=== PATIENT | female | born 1940 | race Caucasian/White ===

== ENCOUNTER 2018-07-26 14:30 | Outpatient (CLI) | payer OTHER | END 2018-07-26 14:33 | disposition home or self-care (01) | LOC: MAMO-SONO 14:30 | DX: Z12.31 Encounter for screening mammogram for malignant neoplasm of breast (principal); Z87.898 Personal history of other specified conditions; N60.11 Diffuse cystic mastopathy of right breast; N60.12 Diffuse cystic mastopathy of left breast ==

== ENCOUNTER 2020-07-23 10:31 | Outpatient (CLI) | payer OTHER | END 2020-07-23 10:41 | disposition home or self-care (01) | LOC: RAD 10:31 → TOM 11:15 | PROVIDERS: ATTEND Internal Medicine | DX: I74.19 Embolism and thrombosis of other parts of aorta (principal) | CPT/HCPCS: 74174; Q9965 ==

== ENCOUNTER 2020-11-14 08:00 | Outpatient (CLI) | payer OTHER | END 2020-11-14 08:30 | disposition home or self-care (01) | LOC: PPH VACUNA 08:00 | DX: Z23 Encounter for immunization (principal) ==

== ENCOUNTER 2020-12-11 08:00 | Outpatient (CLI) | payer OTHER | END 2020-12-11 08:30 | disposition home or self-care (01) | LOC: PPH VACUNA 08:00 | DX: Z23 Encounter for immunization (principal) ==

== ENCOUNTER 2022-02-02 13:22 | Outpatient (CLI) | payer OTHER ==
[2022-02-02] MEDS ORDERED: LEVOTHYROXINE25 MCG PO (15:17)
[2022-02-02] MEDS ORDERED: NORVASC5 MG PO (15:18)
== END 2022-02-02 13:24 | disposition home or self-care (01) ==
LOC: TOM 13:22
PROVIDERS: ATTEND Internal Medicine Pulmonary Disease
DX: R06.02 Shortness of breath (principal); U09.9 Post COVID-19 condition, unspecified

== ENCOUNTER 2022-09-04 14:01 | Outpatient (CLI) | payer OTHER ==
[~2022-09-04 14:01] MED LIST: LEVOTHYROXINE25 MCG PO; NORVASC5 MG PO
== END 2022-09-04 14:09 | disposition home or self-care (01) ==
LOC: TOM 14:01
PROVIDERS: ATTEND Internal Medicine Pulmonary Disease
DX: J43.2 Centrilobular emphysema (principal); J30.1 Allergic rhinitis due to pollen; Z87.891 Personal history of nicotine dependence; Z86.16 Personal history of COVID-19

== ENCOUNTER 2023-05-19 14:07 | Outpatient (CLI) | payer OTHER | END 2023-05-19 14:17 | disposition home or self-care (01) | LOC: TOM 14:07 | PROVIDERS: ATTEND Internal Medicine Pulmonary Disease | DX: J84.116 Cryptogenic organizing pneumonia (principal); Z87.891 Personal history of nicotine dependence; Z86.16 Personal history of COVID-19; R04.2 Hemoptysis ==

== ENCOUNTER 2023-05-24 10:19 | Inpatient (IN) | payer OTHER ==
[~2023-05-24] VITALS: Ht 157.5 cm; Wt 44.9 kg
[2023-05-24 12:52] LABS: HEMATOCRIT 39.2 % (36.0-45.00); HEMOGLOBIN 13.4 g/dL (12.0-15.00); MEAN CELL VOLUME 92.9 fL (80.00-100.00); MEAN CORPUSCULAR HEMOGLOBIN 31.7 pg (27.00-32.0); MEAN CORPUSCULAR HGB CONC 34.2 g/dl (32.0-36.0); PLATELET COUNT 484 K/uL (150-450); RED BLOOD COUNT 4.22 M/uL (4.00-6.00)
[2023-05-24 13:18] LABS: CALCIUM 9.8 mg/dL (8.5-10.1); CREATININE SERUM 0.59 mg/dL (0.55-1.02); GFR 97.82; POTASSIUM 3.87 mEq/L (3.5-5.1)
[2023-05-24 13:27] LABS: C-REACTIVE PROTEIN 0.32 MG/DL (0.00-0.29)
[2023-05-24 13:53] LABS: ABG PH 7.419 (7.35-7.45); ABG pCO2 39.9 mmHg (35-45); BASE EXCESS 0.8 mmol/l; BICARBONATE 25.3 mmol/l (23-25); SaO2 98.1 %; Tco2 26.5 mmol/l; allen test SATISFACTORY; o2 32 %; puncture site RADIAL RIGHT
[2023-05-24 21:29] LABS: D DIMER 0.98 MG/L; INR 1.03; PARTIAL THROMBOPLASTIN TIME 34.6 SECONDS (22.0-34.0); PROTHROMBIN TIME 10.8 SECONDS (9.0-11.5)
[2023-05-24 23:02] LABS: PH,URINE 6.5 (5.0-8.0); URINE APPEARANCE Clear; URINE BILIRRUBIN Negative (NEGATIVE); URINE BLOOD Negative; URINE COLOR Yellow; URINE GLUCOSE Negative (NEGATIVE); URINE LEUKOCYTE Small; URINE NITRATE Negative; URINE PROTEIN Negative (NEGATIVE); URINE UROBILINOGEN 0.2 E.U./dl
[2023-05-24 23:05] LABS: URINE BACTERIA 2774.4 uL (0.0-1933); URINE EPITHELIAL CELLS 42.6 uL (0.0-38.8); URINE WBC 108.9 uL (0.0-23.2)
[2023-05-26 06:15] LABS: HEMATOCRIT 34.1 % (36.0-45.00); HEMOGLOBIN 11.7 g/dL (12.0-15.00); MEAN CELL VOLUME 92.1 fL (80.00-100.00); MEAN CORPUSCULAR HEMOGLOBIN 31.5 pg (27.00-32.0); MEAN CORPUSCULAR HGB CONC 34.2 g/dl (32.0-36.0); PLATELET COUNT 388 K/uL (150-450); RED CELL DISTRIBUTION WIDTH 13.8 % (11.5-14.5)
[2023-05-26 07:01] LABS: ALBUMIN 2.8 gm/dL (3.4-5.0); ALKALINE PHOSPHATASE 62 U/L (50-136); ALT/SGPT 17 U/L (12-78); ANION GAP 11 (10.0-20.0); AST/SGOT 14 U/L (15-37); BILIRUBIN TOTAL 0.36 mg/dL (0.3-1.2); BLOOD UREA NITROGEN 10 mg/dL (7-18); BUN CREA RATIO 16 (7.0-25.0); C-REACTIVE PROTEIN < 0.29 MG/DL (0.00-0.29); CALCIUM 8.7 mg/dL (8.5-10.1); CARBON DIOXIDE 26 mEq/L (21-32); CHLORIDE 103 mmol/L (98-107); CREATININE SERUM 0.63 mg/dL (0.55-1.02); GFR 90.69; GLOBULINA 3.2 G/DL (2.4-3.5); GLUCOSE FASTING 171 mg/dL (65-100); LDH 108 U/L (84-246); OSMOLALITY SERUM 275 MOSM/KG (275-295); PHOSPHOROUS 3.6 mg/dL (2.5-4.9); POTASSIUM 4.19 mEq/L (3.5-5.1); SODIUM 136 mmol/L (136-145)
[2023-05-29 00:05] LABS: quan ag 0 IU/mL (.); quan mito 9.22 IU/mL (.); quant nil 0 IU/mL (.)
[2023-05-29 08:23] LABS: CALCIUM 9.4 mg/dL (8.5-10.1); CREATININE SERUM 0.61 mg/dL (0.55-1.02); GFR 94.13; MAGNESIUM 1.9 mg/dL (1.8-2.4); POTASSIUM 3.43 mEq/L (3.5-5.1)
[2023-05-29 09:04] LABS: HEMATOCRIT 36.6 % (36.0-45.00); HEMOGLOBIN 12.3 g/dL (12.0-15.00); MEAN CELL VOLUME 91.1 fL (80.00-100.00); MEAN CORPUSCULAR HEMOGLOBIN 30.6 pg (27.00-32.0); MEAN CORPUSCULAR HGB CONC 33.6 g/dl (32.0-36.0); PLATELET COUNT 369 K/uL (150-450); RED BLOOD COUNT 4.02 M/uL (4.00-6.00); RED CELL DISTRIBUTION WIDTH 14.5 % (11.5-14.5)
[2023-05-31 06:26] LABS: HEMATOCRIT 32.6 % (36.0-45.00); HEMOGLOBIN 11.2 g/dL (12.0-15.00); MEAN CELL VOLUME 91.2 fL (80.00-100.00); MEAN CORPUSCULAR HEMOGLOBIN 31.2 pg (27.00-32.0); MEAN CORPUSCULAR HGB CONC 34.2 g/dl (32.0-36.0); PLATELET COUNT 369 K/uL (150-450); RED BLOOD COUNT 3.58 M/uL (4.00-6.00); RED CELL DISTRIBUTION WIDTH 13.9 % (11.5-14.5)
[2023-05-31 07:35] LABS: ALBUMIN 2.8 gm/dL (3.4-5.0); BILIRUBIN TOTAL 0.54 mg/dL (0.3-1.2); CALCIUM 8.6 mg/dL (8.5-10.1); CREATININE SERUM 0.59 mg/dL (0.55-1.02); GFR 97.82; GLOBULINA 2.7 G/DL (2.4-3.5); MAGNESIUM 1.7 mg/dL (1.8-2.4); PHOSPHOROUS 3.7 mg/dL (2.5-4.9); POTASSIUM 4.13 mEq/L (3.5-5.1); TOTAL PROTEIN 5.5 gm/dL (6.4-8.2)
[2023-06-02] MEDS ORDERED: INTESTINEX680 M1 PO (08:35)
[2023-06-02] MEDS ORDERED: BENZONATATE100 MG PO (08:35)
[2023-06-02] MEDS ORDERED: LEVOTHYROXINE50 MCG PO (08:35)
[2023-06-02] MEDS ORDERED: NORVASC5 MG PO (08:36)
[2023-06-02] MEDS ORDERED: MEDROLPACK PO (08:36)
[2023-06-05 00:10] LABS: anti MPO AB < 0.2 units (0.0-0.9); anti pr3 < 0.2 units (0.0-0.9); c anca <1:20 titer (Neg:<1:20); p anca <1:20 titer (Neg:<1:20)
== END 2023-06-02 10:27 | disposition home or self-care (01) | DRG 194 ==
LOC: ER 10:20 → MEDI 19:41
PROVIDERS: Emergency Medicine; General Practice; Internal Medicine; Internal Medicine Infectious Disease; ADMIT Internal Medicine; ATTEND Internal Medicine
PROC: BW24ZZZ Computerized Tomography (CT Scan) of Chest and Abdomen (ICD-10-PCS; principal; 2023-06-01)
DX: J18.9 Pneumonia, unspecified organism (principal); J44.1 Chronic obstructive pulmonary disease with (acute) exacerbation; R04.2 Hemoptysis; J90 Pleural effusion, not elsewhere classified; I10 Essential (primary) hypertension; E03.9 Hypothyroidism, unspecified; Z87.891 Personal history of nicotine dependence; Z86.16 Personal history of COVID-19

== ENCOUNTER 2023-12-13 14:39 | Outpatient (CLI) | payer OTHER ==
[~2023-12-13 14:39] MED LIST changes: +BENZONATATE100 MG PO; +INTESTINEX680 M1 PO; +LEVOTHYROXINE50 MCG PO; +MEDROLPACK PO
== END 2023-12-13 14:45 | disposition home or self-care (01) ==
LOC: TOM 14:39
PROVIDERS: ATTEND Internal Medicine Pulmonary Disease
DX: J30.1 Allergic rhinitis due to pollen (principal); J84.116 Cryptogenic organizing pneumonia; Z87.891 Personal history of nicotine dependence; R04.2 Hemoptysis